=== PATIENT | female | born 2000 | race Hispanic/Latino ===

== ENCOUNTER 2025-04-16 19:05 | Emergency (ER) | payer SELFPAY ==
[~2025-04-16] VITALS: Ht 165.1 cm; Wt 58.5 kg
[2025-04-16 19:45] LABS: BASOPHILS # (AUTO) 0.02 K/uL (0.00-0.20); BASOPHILS % (AUTO) 0.2 % (0.0-5.0); EOSINOPHILS # (AUTO) 0.01 K/uL (0.00-0.70); EOSINOPHILS % (AUTO) 0.1 % (0.0-8.0); HEMATOCRIT 35.6 % (36-48); IMMATURE GRANULOCYTE ABSOLUTE 0.04 K/uL (0-1); LYMPHOCYTES # (AUTO) 0.6 K/uL (1.0-4.8); LYMPHOCYTES % (AUTO) 6.9 % (21.0-51.0); MEAN CORPUSCULAR HEMOGLOBIN 27.5 pg (27.0-33.0); MEAN CORPUSCULAR HGB CONC 32.9 g/dL (32.0-36.0); MEAN CORPUSCULAR VOLUME 83.6 fL (79-99); NEUTROPHILS # (AUTO) 7.2 K/uL (1.8-7.7); NEUTROPHILS % (AUTO) 81.3 % (40.0-77.0); PLATELET COUNT (AUTO) 233 K/uL (130-400); RED BLOOD CELL COUNT(AUTO) 4.26 MIL/uL (4.00-5.50); RED CELL DISTRIBUTION WIDTH 14.8 % (11.0-15.5); WHITE BLOOD COUNT (AUTO) 8.9 K/uL (4.8-10.8)
[2025-04-16 19:53] LABS: CREATININE 0.9 mg/dL (0.5-1.0); POTASSIUM 3.7 mmol/L (3.5-5.1)
[2025-04-16] MEDS: cefTRIAXone 1G VIAL IVPB ONE (20:46)
[2025-04-16] MEDS: LACTATED RINGERS 1000ML 1,000 ML IV ONE (20:46)
[2025-04-16] MEDS ORDERED: VALA100031 PO (21:19)
--- NOTE | 2025-04-16 21:22 | ERN ---
General Chief Complaint: UTI with Fever Stated Complaint: UTI Time Seen by MD: 19:07 History of Present Illness Initial Comments 4-year-old female who presents for vaginal discomfort burning with the urination and a fever. Patient reports he has had a fever throughout the week with a sore throat. She has developed some pain and discomfort to her vaginal area. She went to her PCP was diagnosed with a urinary tract infection started on Bactrim, but she continues with the pain and discomfort. Allergies: Coded Allergies: No Known Drug Allergies (Unverified Allergy, Unknown, 04/16/25) Past Medical History Past Medical History: No Pertinent History Past Surgical History: None ROS Dictation CONSTITUTIONAL: Fever HEAD/FACE: No signs of trauma. EENT: No eye pain, no blurred vision, no tearing, no double vision, no ear pain, no ear discharge, no nose pain, no nasal congestion, no throat pain, no throat swelling, no mouth pain. RESPIRATORY: No cough, no orthopnea, no SOB, no stridor, no wheezing. CARDIOVASCULAR: No chest pain, no edema, no palpitations, no syncope. GASTROINTESTINAL/ABDOMINAL: No abdominal pain, no constipation, no diarrhea, no nausea, no vomiting. GENITOURINARY: Vaginal pain MUSCULOSKELETAL: No back pain, no gout, no joint pain, no joint swelling, no muscle pain, no muscle stiffness, no neck pain. INTEGUMENTARY: No change in color, no change in hair/nails, no dryness, no lesion, no lumps, no rash. NEUROLOGICAL/PSYCH: No anxiety, not depressed, no emotional problem, no headache, no numbness, no pre-existing deficit, no history of seizures, no tremors, no weakness. HEMATOLOGIC/LYMPHATIC: Not anemic, no history of blood clots, no apparent bleeding, no bruising, glands not swollen. All Systems Negative, Except as Noted. Physical Exam Physical Exam Dictation VITAL SIGNS: Reviewed. GENERAL APPEARANCE: Alert, oriented x3, no acute distress, obese. HEAD AND FACE: Non-traumatic. EYES: PERRL, pink conjunctivas, eyelid no trauma, anterior chamber clear. EARS: Pinnas intact and no signs of trauma or erythema. Ear canals clear and no discharge. TMs no erythema. NOSE: No discharge, no bleeding. OROPHARYNX: Mouth normal, teeth no caries, tongue pink. Pharynx clear, no erythema. Tonsils no exudates, no abscesses noted. Mucous membrane moist. NECK: Supple, non-tender, no thyromegaly, no masses, no JVD, no bruits. BREAST: Deferred. CHEST: No tenderness, no crepitus, no paradoxical movement, no retractions. LUNGS: Clear, well-ventilated, symmetric, no rales, no wheezing, no rhonchi, no stridor, good breath sounds bilaterally. HEART: Regular rate, regular rhythm, no murmur, no gallops. VASCULAR: No peripheral edema. ABDOMEN: Soft, positive bowel sounds, nondistended, no guarding, nontender, no rebound, no masses no hepatomegaly, no splenomegaly, no Turk's sign, no hernias. RECTAL: Deferred. GENITAL: Herpes NEUROLOGICAL: Normal speech, gross motor function intact, gross sensory function intact. MUSCULOSKELETAL: Neck nontender, full range of motion, back nontender, full range of motion. EXTREMITIES: Nontender, full range of motion. SKIN: Color pink, dry, no turgor, no rash, no lacerations, no abrasions, no contusions. LYMPHATICS: Deferred. Results Laboratory and Microbiology Lab and Micro Result Laboratory Tests Test 04/16/25 19:40 White Blood Count 8.9 K/uL (4.8-10.8) Red Blood Count 4.26 MIL/uL (4.00-5.50) Hemoglobin 11.7 g/dL (12.0-16.0) L Hematocrit 35.6 % (36-48) L Mean Corpuscular Volume 83.6 fL (79-99) Mean Corpuscular Hemoglobin 27.5 pg (27.0-33.0) Mean Corpuscular Hemoglobin Concent 32.9 g/dL (32.0-36.0) Red Cell Distribution Width 14.8 % (11.0-15.5) Platelet Count 233 K/uL (130-400) Mean Platelet Volume 10.9 fL (7.5-10.5) H Immature Granulocyte % (Auto) 0.5 % (0-1) Neutrophils (%) (Auto) 81.3 % (40.0-77.0) H Lymphocytes (%) (Auto) 6.9 % (21.0-51.0) L Monocytes (%) (Auto) 11.0 % (3.0-13.0) Eosinophils (%) (Auto) 0.1 % (0.0-8.0) Basophils (%) (Auto) 0.2 % (0.0-5.0) Neutrophils # (Auto) 7.2 K/uL (1.8-7.7) Lymphocytes # (Auto) 0.6 K/uL (1.0-4.8) L Monocytes # (Auto) 1.0 K/uL (0.1-1.0) Eosinophils # (Auto) 0.01 K/uL (0.00-0.70) Basophils # (Auto) 0.02 K/uL (0.00-0.20) Absolute Immature Granulocyte (auto 0.04 K/uL (0-1) Nucleated Red Blood Cells 0.0 % (0.0-0.19) White Cell Morphology Comment See comments Sodium Level 135 mmol/L (136-145) L Potassium Level 3.7 mmol/L (3.5-5.1) Chloride Level 96 mmol/L (101-111) L Carbon Dioxide Level 27 mmol/L (21-32) Blood Urea Nitrogen 5 mg/dL (7-18) L Creatinine 0.9 mg/dL (0.5-1.0) Glomerular Filtration Rate Calc 93 mL/min (>90) Random Glucose 102 mg/dL (70-105) Total Calcium 9.0 mg/dL (8.5-10.1) MDM CC: Vaginal pain Historian: Patient Comorbidities: None Limitations by social determinants: None Differential diagnosis: UTI, vaginitis, STI, other. Labs are unremarkable per my independent interpretation On clinical exam patient has a herpes simplex outbreak. No further studies indicated. We will DC with valacyclovir in pain control. ED Course Orders Procedure Category Date Status Time Cbc With Differential LAB 04/16/25 Complete 19:17 Basic Metabolic Panel LAB 04/16/25 Complete 19:17 Urinalysis Profile LAB 04/16/25 Logged 19:17 Lactated Ringers PHA 04/16/25 Complete 1000ml (Lactated 19:30 ,Urine Test LAB 04/16/25 Logged 19:17 Ceftriaxone 1g Vial PHA 04/16/25 Complete (Rocephine 1g Inj) 19:30 Current Medications Medications (Trade) Dose Ordered Sig/Nicki Route PRN Reason Start Time Stop Time Status Last Admin Dose Admin Ceftriaxone Sodium (ROCEphine 1G INJ) 1 gm ONCE ONCE IVPB 04/16/25 19:30 04/16/25 20:32 DC 04/16/25 20:46 Lactated Ringer's 1,000 ml @ 0 mls/hr ONCE ONCE IV 04/16/25 19:30 04/16/25 20:32 DC 04/16/25 20:46 Vital Signs Date Time Temp Pulse Resp B/P (MAP) Pulse Ox O2 Delivery O2 Flow Rate FiO2 04/16/25 19:06 98.8 120 20 110/70 97 Room Air 0 DX & DISP Disposition: Discharge Departure Impression: Primary Impression: Genital herpes Condition: Stable Scripts Valacyclovir HCl (Valacyclovir) 1,000 Mg Tablet 1 TAB PO BID for 7 Days, #21 TAB 0 Refills Prov: BHARATI BANERJEE DO 04/16/25 Additional Instructions: Your symptoms are consistent with genital herpes. As we discussed, this is a sexually transmitted viral infection. I have prescribed valacyclovir, which is an antiviral medication. Please take as prescribed. Complete the full course. For pain, alternate ibuprofen (800 mg) and Tylenol (1000 mg) every 4 hours as needed for pain. These medications are [id number]. You can also try [id number] lidocaine gel or zinc oxide cream for pain or discomfort. These medications are also [id number]. Avoid steroid creams. These may worsen viral shedding. You can take a warm water bath two or 3 times a day to improve pain and hygiene. Wear loose fitting clothing and avoid harsh soaps. HSV is contagious. Use condoms and protection and abstain during outbreaks. As we discussed, I recommend a full STI screen. Please return to the emergency department as needed. Referrals: DONTAE SIEGEL (PCP) BHARATI BANERJEE DO April 16, 2025 21:22
[2025-04-16 21:23] VITALS: BP 113/68; PULSE 96; RESP 18; TEMP 98.9; O2SAT 99
== END 2025-04-16 21:41 | disposition home or self-care (01) ==
LOC: EDH 19:05
DX: A60.09 Herpesviral infection of other urogenital tract (principal)
CPT/HCPCS: 99284; 96365; 80048; 85025; 36415; J7120; J0696